=== PATIENT | female | born 1965 | race Caucasian/White ===

== ENCOUNTER 2024-12-06 21:54 | Emergency (ER) | payer MEDICAID ==
[2024-12-06] MEDS: Benzonatate 100 MG Cap PO ONE (22:48)
[2024-12-06] MEDS: Albuterol/Ipratropium 3.0-0.5 MG/3 ML Neb Soln NEB ONE (22:54)
[2024-12-06] MEDS: Azithromycin 250 MG Tab PO ONE (23:45)
[2024-12-06 23:49] VITALS: BP 146/72; PULSE 82
== END 2024-12-06 23:48 | disposition home or self-care (01) ==
LOC: JD.ED 21:54
DX: J40 Bronchitis, not specified as acute or chronic (principal); E66.9 Obesity, unspecified; Z90.49 Acquired absence of other specified parts of digestive tract; Z90.710 Acquired absence of both cervix and uterus; Z86.16 Personal history of COVID-19; Z79.899 Other long term (current) drug therapy; Z88.8 Allergy status to other drugs, medicaments and biological substances; Z68.43 Body mass index [BMI] 50.0-59.9, adult
CPT/HCPCS: 71046; 87428; 87651; 94640; 99285; A9270; J7620-GY